=== PATIENT | male | born 1990 | race Two or more races ===

== ENCOUNTER 2024-08-24 16:57 | Emergency (ER) | payer MEDICAID, OTHER ==
[~2024-08-24] VITALS: Ht 162.6 cm; Wt 68.1 kg
[2024-08-24 17:06] VITALS: BP 128/69; PULSE 83; RESP 17; TEMP 99; O2SAT 96
[2024-08-24] MEDS: TETRACAINE HCL 0.5% OPTH(EYE) SOLN 4ML RIGHTEYE ONE (17:34)
[2024-08-24] MEDS: FLUORESCEIN SOD OPTH TEST STRIP OP ONE (17:35)
--- NOTE | 2024-08-24 17:38 | ED.PDOC ---
Eye-HPI HPI Comments A 33 YEAR OLD MALE PRESENTS TO THE ED WITH COMPLAINT OF EYE PAIN AND REDNESS. PATIENT REPORTS THAT HE HAS BEEN EXPERIENCING RIGHT SIDED EYE PAIN AND REDNESS SINCE CUTTING LAMINATE PATRICIA WITH A TABLE SAW WITHOUT SAFETY GLASSES, CAUSING A PIECE OF THE LAMINATE TO FLY INTO HIS RIGHT EYE. PATIENT RELAYS THAT HE IS NOT SURE IF THE FOREIGN BODY IS STILL PRESENT. PATIENT DENIES BLURRED VISION, VISION LOSS, HEADACHE, OR OTHER COMPLAINTS. NO OTHER SYMPTOMS OR MODIFYING FACTORS AT THIS TIME. Chief Complaint: Eye Problem Time Seen by MD: 17:34 Primary Care Provider: NONE Reviewed Notes: Nurses Notes, Medications, Allergies Allergies: Coded Allergies: NO KNOWN ALLERGIES (Unverified , 08/24/24) Home Meds Active Scripts Tobramycin Sulfate (Tobrex) 1 Drop , 2 DROP OP QIKylah, #5 ML Prov:ANDRES MENDOZA 08/24/24 Information Source: Patient Mode of Arrival: Ambulatory Timing: Hours Duration: Since onset Prehospital treatment: None Quality: Pain, Red Eye Location: Right Lids: Normal Conjunctiva: Subconjunctival hemorrhag Cornea: Right eye, Abrasion Pupils: Normal EOM: Normal Fundus: Normal Slit lamp exam: Right eye, Corneal abrasion, Flourescein stain:, Positive Anterior chamber: Normal Mouth: Normal ENT Ear Exam: Normal Nose: Normal Sinuses: Normal Oropharynx: Normal Onset: FB Exposure Eye Context Recent: High speed machinery use History of: None Last Tetanus: Unknown Modifying factors: Nothing Associated signs and symptoms: Tearing, Photophobia Past Medical History PAST MEDICAL HISTORY: Denies Surgical History: Denies all surgeries Family History Family History: Reviewed,noncontributory to illness Social History Smoker: Non-Smoker Alcohol: Denies ETOH Use Drugs: Denies Drug Use Lives In: Home Constitutional: denies: chills, diaphoresis, fatigue, fever, malaise, sweats, weakness, others EENTM: reports: eye pain, eye redness; denies: blurred vision, double vision, ear bleeding, ear discharge, ear drainage, ear ringing, hearing loss, mouth pain, mouth swelling, nasal discharge, nose bleeding, nose congestion, nose pain, photophobia, tearing, throat pain, throat swelling, voice changes, others Respiratory: denies: cough, hemoptysis, orthopnea, SOB at rest, shortness of breath, SOB with excertion, stridor, wheezing, others Cardiovascular: denies: chest pain, dizzy spells, diaphoresis, Dyspnea on exertion, edema, irregular heart beat, left arm pain, lightheadedness, p alpitations, PND, syncope, others Gastrointestinal: denies: abdomen distended, abdominal pain, blood streaked bowels, constipated, diarrhea, dysphagia, difficulty swallowing, hematemesis, melena, nausea, poor appetite, poor fluid intake, rectal bleeding, rectal pain, vomiting, others Genitourinary: denies: burning, dysuria, flank pain, frequency, hematuria, incontinence, penile discharge, penile sore, pain, testicle pain, testicle swelling, urgency, others Neurological: denies: dizziness, fainting, headache, left sided numbness, left sided weakness, numbness, paresthesia, pre-existing deficit, right sided numbness, right sided weakness, seizure, speech problems, tingling, tremors, weakness, others Musculoskeletal: denies: back pain, gout, joint pain, joint swelling, muscle pain, muscle stiffness, neck pain, others Integumetry: denies: bruises, change in color, change in hair/nails, dryness, laceration, lesions, lumps, rash, wounds, others Allergic/Immunocompromised: denies: Difficulty Healing, Frequent Infections, Hives, Itching, others Hematologic/Lymphatic: denies: anemia, blood clots, easy bleeding, easy b ruising, swollen glands, others Endocrine: denies: excessive hunger, excessive sweating, excessive thirst, excessive urination, flushing, intolerance to cold, intolerance to heat, unexplained weight gain, unexplained weight loss, others Psychiatric: denies: anxiety, bipolar disorder, depression, hopeless, panic disorder, schizophrenia, sleepless, suicidal, others All Other Systems: Reviewed and Negative Physical Exam General Appearance: No Apparent Distress, Normal HEENT: Cornea (R) (WOOD LAMP EXAM: NO FB, +CORNEA ABRASION, MILD RIGHT SUBCONJUNCTIVA HEMORRHAGE. UNABLE TO CHECK VISUAL ACUITY BECAUSE PT DOES NOT WEAR HIS GLASSES, NEAR SIGHTED. ), Normal ENT Inspection, PERRL/EOMI, TMs Normal Neck: Full Range of Motion, Non-Tender, Normal, Normal Inspection Respiratory: Chest Non-Tender, Lungs Clear, No Accessory Muscle Use, No Respiratory Distress, Normal Breath Sounds Cardiovascular: No Edema, No JVD, No Murmur, No Gallop, Normal Peripheral Pulses, Regular Rate/Rhythm Breast Exam: Deferred Gastrointestinal: No Organomegaly, Non Tender, No Pulsatile Mass, Normal Bowel Sounds, Soft Genitalia: Deferred Pelvic: Deferred Rectal: Deferred Extremities: No calf tenderness, Normal capillary refill, Normal inspection, Normal range of motion, Non-tender, No pedal edema Musculoskeletal : Apperance: Normal Neurologic: Alert, superintendent refuse disposal II-XII nml as Tested, No Motor Deficits, Normal Affect, Normal Mood, No Sensory Deficits Cerebellar Function: Normal Reflexes: Normal Skin: Dry, Normal Color, Warm Peripheral Pulses: 2+ carotid (R), 2+ carotid (L) Lymphatic: No Adenopathy Was a procedure done? Was a procedure done?: No EENT DIFF Eye: Conjunctivitis, Allergic, Corneal Abrasion, Foreign Body-Corneal X-Ray, Labs, Meds, VS Vital Signs Date Time Temp Pulse Resp B/P (MAP) Pulse Ox O2 Delivery O2 Flow Rate FiO2 08/24/24 17:06 83 17 96 Room Air 08/24/24 17:06 99.0 83 17 128/69 (88) 96 08/24/24 17:06 99.0 83 17 128/69 (88) 96 99.0 Time of 1ST Reevaluation: 18:00 Reevaluation 1ST: Improved Patient Education/Counseling: Diagnosis, Treatment, Need For Follow Up Family Education/Counseling: Diagnosis, Treatment, No Family Present Medical Screening: No EMC Exist At This Time Departure 1 Departure Time of Disposition: 18:00 Impression: Primary Impression: Corneal abrasion, right Qualified Codes: S05.01XA - Injury of conjunctiva and corneal abrasion without foreign body, right eye, initial encounter Disposition: HOME / SELF CARE / HOMELESS Condition: Stable Additional Instructions: 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 RETURN TO THE ED IF SYMPTOMS PERSIST OR WORSEN. e-Prescriptions Tobramycin Sulfate (Tobrex) [address] 2 DROP OP QID, #5 ML Prov: ANDRES MENDOZA 08/24/24 Discharged With: Self Critical Care Note Critical Care Time?: No Stability Stability form required: No Heart Score Heart Score: Heart Score Response (Comments) Value History N/A 0 EKG N/A 0 Age N/A 0 Risk Factors N/A 0 Troponin N/A 0 Total 0 I personally scribed for ANDRES MENDOZA ([email or web address]) on 08/24/24 at 17:38. Electronically submitted by Neo Uribe ([email or web address]). I personally scribed for ANDRES MENDOZA ([email or web address]) on 08/24/24 at 17:41. Electronically submitted by Neo Uribe ([email or web address]). ANDRES MENDOZA Aug 24, 2024 17:38
[2024-08-24] MEDS ORDERED: TOB03OS OP (17:42)
== END 2024-08-24 18:01 | disposition home or self-care (01) ==
LOC: ER 17:03
DX: S05.01XA Injury of conjunctiva and corneal abrasion without foreign body, right eye, initial encounter (principal); W26.8XXA Contact with other sharp object(s), not elsewhere classified, initial encounter; W45.8XXA Other foreign body or object entering through skin, initial encounter; Y93.89 Activity, other specified; Y92.89 Other specified places as the place of occurrence of the external cause; Y99.8 Other external cause status